=== PATIENT | female | born 1985 | race American Indian/Alaskan Native ===

== ENCOUNTER 2019-04-09 02:45 | Emergency (ER) | payer SELFPAY ==
[2019-04-09 02:54] VITALS: BP 129/82
[2019-04-09 03:59] LABS: HCG Qualitative,Urine Negative (Negative)
[2019-04-09] MEDS ORDERED: KETOROLAC 30 MG/1 ML INJ IM ONE (04:04)
[2019-04-09] MEDS ORDERED: dexAMETHasone 20 MG/5 ML VIAL IM ONE (04:05)
[2019-04-09 04:09] LABS: Bilirubin,Urine NEG (Negative); Blood,Urine LG (Negative); Color,Urine Yellow (Yellow); Mucus,Urine 1+ /HPF
[2019-04-09 04:36] LABS: Hematocrit 38.1 % (30.3-42.9); Hemoglobin 12.9 gm/dl (10.1-14.3); Mean Corpuscular HGB Conc 34 % (30-34); Mean Corpuscular Volume 86 fl (79-97); Platelet Count 202 K/mm3 (140-440); Red Blood Count 4.42 M/mm3 (3.65-5.03)
--- NOTE | 2019-04-09 04:41 | Cat Scan Report ---
CT OF THE ABDOMEN AND PELVIS WITHOUT CONTRAST INDICATION / CLINICAL INFORMATION: Left lower abdominal and flank pain.. TECHNIQUE: All CT scans at this location are performed using CT dose reduction for ALARA by means of automated e xposure control. COMPARISON: None available. FINDINGS: ABDOMEN: The liver, spleen, gallbladder, bile ducts, pancreas, adrenal glands, kidneys and bowel demo nstrate no significant abnormality. No adenopathy is seen. The lung bases are clear. PELVIS: The distal ureters and urinary bladder are normal. The uterus and adnexal regions are normal. Minimal free fluid in the cul-de-sac is likely physiologic. A normal appendix is present and there i s no evidence of diverticulitis. I do not identify a hernia. No acute osseous abnormality is seen. IMPRESSION: No acute abnormality. Signer Name: Moisés Workman MD Signed: 04/09/2019 4:37 AM Workstation Name: [id number]
[2019-04-09 04:56] LABS: Alanine Aminotransferase 13 units/L (7-56); Albumin 4.3 g/dL (3.9-5); BUN/Creatinine Ratio 10; Blood Urea Nitrogen 8 mg/dL (7-17); Calcium 8.9 mg/dL (8.4-10.2); Hemolysis Index 3
--- NOTE | 2019-04-09 05:05 | Emergency Department Report ---
ED General Adult HPI - General Chief complaint: Abdominal Pain Stated complaint: CHEST PAIN/ABD PAIN Source: patient Mode of arrival: Ambulatory Limitations: No Limitations - History of Present Illness Initial comments: Patient is a 33-year-old Afro-[place]ian female with no past medical history who presents to the ED, acute onset persistent nasal and sinus congestion, frontal sinus pressure and dry cough as well as severe left hip pain that radiates to the left lower quadrant for the last 2 days, worse in the last 2 hours. Patient denies fever, chills, nausea, vomiting, dizziness, chest pain, shortness of breath, diarrhea, dysuria, urinary frequency and urgency, heavy lifting or fall, diarrhea or numbness and tingling over her lower extremities bilaterally. MD Complaint: left hip pain; nasal and sinus congestion -: Sudden, hour(s) (2) Location: abdomen (LLQ) Radiation: abdomen (LLQ), flank (left) Severity scale (0 -10): 7 Quality: aching, sharp Consistency: constant Improves with: none Worsens with: movement Associated Symptoms: denies other symptoms, cough, loss of appetite. denies: confusion, chest pain, diaphoresis, fever/chills, headaches, malaise, nausea/vomiting, rash, seizure, shortness of breath, syncope, weakness Treatments Prior to Arrival: none - Related Data Previous Rx's Medication Instructions Recorded Last Taken Type Azithromycin [Zithromax Z-SHADE] 250 mg PO DAILY #6 tablet 04/09/19 Unknown Rx Benzonatate [Tessalon Perles] 100 mg PO Q8HR #30 capsule 04/09/19 Unknown Rx Cetirizine HCl [Zyrtec 10mg tab] 10 mg PO DAILY #30 tablet 04/09/19 Unknown Rx Ibuprofen [Motrin] 800 mg PO Q8HR PRN #24 tablet 04/09/19 Unknown Rx Prednisone [predniSONE 10 mg 10 mg PO .TAPER #21 tab.ds.pk 04/09/19 Unknown Rx (6-Day Pack, 21 Tabs)] Allergies Allergy/AdvReac Type Severity Reaction Status Date / Time No Known Allergies Allergy Unverified 04/09/19 03:02 ED Review of Systems ROS: Stated complaint: CHEST PAIN/ABD PAIN Other details as noted in HPI Constitutional: denies: chills, fever Eyes: denies: eye pain, eye discharge, vision change ENT: throat pain, congestion. denies: ear pain Respiratory: cough. denies: shortness of breath, wheezing Cardiovascular: denies: chest pain, palpitations Endocrine: no symptoms reported Gastrointestinal: denies: abdominal pain, nausea, diarrhea Genitourinary: denies: urgency, dysuria, discharge Musculoskeletal: arthralgia (left hip pain). denies: back pain, joint swelling Skin: denies: rash, lesions Neurological: denies: headache, weakness, paresthesias Psychiatric: denies: anxiety, depression Hematological/Lymphatic: denies: easy bleeding, easy bruising ED Past Medical Hx - Past Medical History Previous Medical History?: Yes Hx Seizures: Yes - Surgical History Past Surgical History?: Yes Additional Surgical History: c-sec - Social History Smoking Status: Current Every Day Smoker Substance Use Type: None - Medications Home Medications: Home Medications Medication Instructions Recorded Confirmed Last Taken Type Azithromycin [Zithromax Z-SHADE] 250 mg PO DAILY #6 tablet 04/09/19 Unknown Rx Benzonatate [Tessalon Perles] 100 mg PO Q8HR #30 capsule 04/09/19 Unknown Rx Cetirizine HCl [Zyrtec 10mg tab] 10 mg PO DAILY #30 tablet 04/09/19 Unknown Rx Ibuprofen [Motrin] 800 mg PO Q8HR PRN #24 tablet 04/09/19 Unknown Rx Prednisone [predniSONE 10 mg 10 mg PO .TAPER #21 tab.ds.pk 04/09/19 Unknown Rx (6-Day Pack, 21 Tabs)] ED Physical Exam - General Limitations: No Limitations General appearance: alert, in no apparent distress - Head Head exam: Present: atraumatic, normocephalic, normal inspection - Eye Eye exam: Present: normal appearance, PERRL, EOMI - ENT ENT exam: Present: mucous membranes moist, TM's normal bilaterally, normal external ear exam, other (grossly congested nasal passages) - Neck Neck exam: Present: normal inspection, full ROM. Absent: tenderness, lymphadenopathy - Respiratory Respiratory exam: Present: normal lung sounds bilaterally. Absent: respiratory distress, wheezes, rales, chest wall tenderness, accessory muscle use, prolonged expiratory - Cardiovascular Cardiovascular Exam: Present: regular rate, normal rhythm, normal heart sounds. Absent: systolic murmur, diastolic murmur, rubs, gallop - GI/Abdominal GI/Abdominal exam: Present: soft, normal bowel sounds. Absent: tenderness, guarding, rebound, hyperactive bowel sounds, hypoactive bowel sounds, organomegaly - Extremities Exam Extremities exam: Present: normal inspection, full ROM, tenderness (palpable left hip tenderness), normal capillary refill - Back Exam Back exam: Present: normal inspection, full ROM. Absent: tenderness, muscle spasm, paraspinal tenderness - Neurological Exam Neurological exam: Present: alert, oriented X3, CN II-XII intact, normal gait, reflexes normal - Psychiatric Psychiatric exam: Present: normal affect, normal mood - Skin Skin exam: Present: warm, dry, intact, normal color. Absent: rash ED Course Vital Signs 04/09/19 02:52 Temperature 98.7 F Pulse Rate 94 H Respiratory 20 Rate Blood Pressure 129/82 O2 Sat by Pulse 100 Oximetry ED Medical Decision Making - Lab Data Result diagrams: 04/09/19 04:19 04/09/19 04:19 - Radiology Data Radiology results: report reviewed, [place] [address] Cat Scan Report Signed Patient: LINDA ARMSTRONG MR#: [id number] : 1985 Acct:[id number] Age/Sex: 33 / F ADM Date: 04/09/19 Loc: ED Attending Dr: Ordering Physician: BIN BRAND Date of Service: 04/09/19 Procedure(s): CT abdomen pelvis wo con Accession Number(s): [id number] cc: BIN BRAND CT OF THE ABDOMEN AND PELVIS WITHOUT CONTRAST INDICATION / CLINICAL INFORMATION: Left lower abdominal and flank pain.. TECHNIQUE: All CT scans at this location are performed using [facility] by means of automated exposure control. COMPARISON: None available. FINDINGS: ABDOMEN: The liver, spleen, gallbladder, bile ducts, pancreas, adrenal glands, kidneys and bowel demonstrate no significant abnormality. No adenopathy is seen. The lung bases are clear. PELVIS: The distal ureters and urinary bladder are normal. The uterus and adnexal regions are normal. Minimal free fluid in the cul-de-sac is likely physiologic. A normal appendix is present and there is no evidence of diverticulitis. I do not identify a hernia. No acute osseous abnormality is seen. IMPRESSION: No acute abnormality. Signer Name: Moisés Workman MD Signed: 04/09/2019 4:37 AM Workstation Name: [id number] Transcribed By: RT Dictated By: Moisés Workman MD Electronically Authenticated By: Moisés Workman MD Signed Date/Time: 04/09/19436 DD/ 3 TD/TT: - Medical Decision Making This is a 33-year-old female with no past medical history presented to the ED with complaint of acute onset persistent nasal and sinus congestion, persistent dry cough for 2 days, and acute onset severe left hip pain that radiated to the left lower quadrant area for 2 hours. In the ED, patient is alert and oriented 3 and is not in distress. Lab test results were reviewed and all nonactio nable. Abdomen pelvis CT scan without contrast shows no acute abnormalities in the abdomen and pelvis. Patient was offered pain medications but declined. Patient was therefore discharged home on medications for pain and medications for upper respiratory infection and was advised to follow-up with her primary care physician in 5-7 days for reevaluation or return to the ED immediately if symptoms get worse. - Differential Diagnosis kidney stones; muscle strain; colitis; UTI; Ovarian cyst Critical care attestation.: If time is entered above; I have spent that time in minutes in the direct care of this critically ill patient, excluding procedure time. ED Disposition Clinical Impression: Acute pain of left hip, Acute upper respiratory infection Muscle strain of left hip Qualifiers: Encounter type: initial encounter Qualified Code(s): S76.012A - Strain of muscle, fascia and tendon of left hip, initial encounter Disposition: TO HOME OR SELFCARE Is pt being admited?: No Does the pt Need Aspirin: No Condition: Stable Instructions: Abdominal Pain (ED), Arthralgia (ED), Muscle Strain (ED), Upper Respiratory Infection (ED) Additional Instructions: Your symptoms are likely due to muscle strain of the left hip. The lab test results and imaging report unremarkable. Take medications with food, drink plenty of fluids and follow-up with your primary care physician in 7-10 days for reevaluation. Return to the ED immediately if symptoms get worse. Prescriptions: Ibuprofen [Motrin] 800 mg PO Q8HR PRN #24 tablet PRN Reason: Pain , Severe (7-10) Prednisone [predniSONE 10 mg (6-Day Pack, 21 Tabs)] 10 mg PO .TAPER #21 tab.ds.pk Benzonatate [Tessalon Perles] 100 mg PO Q8HR #30 capsule Azithromycin [Zithromax Z-SHADE] 250 mg PO DAILY #6 tablet Cetirizine HCl [Zyrtec 10mg tab] 10 mg PO DAILY #30 tablet Referrals: [facility] [Outside] - 7-10 days Time of Disposition: 06:19 Print Language: KINYARWANDA
[2019-04-09 05:54] LABS: Eosinophils % (Manual) 0 % (0.0-4.3); Total Cells Counted 100
[2019-04-09 05:55] LABS: Anisocytosis Few; Platelet Estimate Consistent w Auto
== END 2019-04-09 06:42 | disposition home or self-care (01) ==
LOC: ED 02:45
DX: S76.012A Strain of muscle, fascia and tendon of left hip, initial encounter (principal); J06.9 Acute upper respiratory infection, unspecified; F17.200 Nicotine dependence, unspecified, uncomplicated; Z79.899 Other long term (current) drug therapy; X58.XXXA Exposure to other specified factors, initial encounter; Y93.89 Activity, other specified; Y92.89 Other specified places as the place of occurrence of the external cause; Y99.8 Other external cause status
CPT/HCPCS: 36415; 74176; 80053; 81001; 81025; 83690; 85007; 85025; 99284; J1100; J1885

== ENCOUNTER 2019-06-24 21:08 | Emergency (ER) | payer OTHER ==
[2019-06-24 21:31] VITALS: BP 124/67
--- NOTE | 2019-06-24 23:57 | Emergency Department Report ---
ED Head Trauma HPI - General Chief complaint: Abdominal Pain Stated complaint: STOMACH PAIN/PINK DISCHARGE Time Seen by Provider: 06/24/19 23:54 Source: patient Mode of arrival: Ambulatory Limitations: No Limitations - Related Data Previous Rx's Medication Instructions Recorded Last Taken Type Azithromycin [Zithromax Z-SHADE] 250 mg PO DAILY #6 tablet 04/09/19 Unknown Rx Benzonatate [Tessalon Perles] 100 mg PO Q8HR #30 capsule 04/09/19 Unknown Rx Cetirizine HCl [Zyrtec 10mg tab] 10 mg PO DAILY #30 tablet 04/09/19 Unknown Rx Ibuprofen [Motrin] 800 mg PO Q8HR PRN #24 tablet 04/09/19 Unknown Rx Prednisone [predniSONE 10 mg 10 mg PO .TAPER #21 tab.ds.pk 04/09/19 Unknown Rx (6-Day Pack, 21 Tabs)] Allergies/Adverse reactions: Allergies Allergy/AdvReac Type Severity Reaction Status Date / Time No Known Allergies Allergy Unverified 04/09/19 03:02 ED Review of Systems ROS: Stated complaint: STOMACH PAIN/PINK DISCHARGE Other details as noted in HPI ED Past Medical Hx - Past Medical History Previous Medical History?: No Hx Seizures: Yes - Surgical History Past Surgical History?: Yes Additional Surgical History: c-sec, - Social History Smoking Status: Current Every Day Smoker Substance Use Type: None - Medications Home Medications: Home Medications Medication Instructions Recorded Confirmed Last Taken Type Azithromycin [Zithromax Z-SHADE] 250 mg PO DAILY #6 tablet 04/09/19 Unknown Rx Benzonatate [Tessalon Perles] 100 mg PO Q8HR #30 capsule 04/09/19 Unknown Rx Cetirizine HCl [Zyrtec 10mg tab] 10 mg PO DAILY #30 tablet 04/09/19 Unknown Rx Ibuprofen [Motrin] 800 mg PO Q8HR PRN #24 tablet 04/09/19 Unknown Rx Prednisone [predniSONE 10 mg 10 mg PO .TAPER #21 tab.ds.pk 04/09/19 Unknown Rx (6-Day Pack, 21 Tabs)] ED Physical Exam - General Limitations: No Limitations ED Course Vital Signs 06/24/19 21:30 Temperature 98.4 F Pulse Rate 91 H Respiratory 18 Rate Blood Pressure 124/67 O2 Sat by Pulse 99 Oximetry Critical care attestation.: If time is entered above; I have spent that time in minutes in the direct care of this critically ill patient, excluding procedure time. ED Disposition Condition: Stable Instructions: Abdominal Pain (ED) Referrals: PRIMARY CARE, [Primary Care Provider] - 3-5 Days
--- NOTE | 2019-06-25 00:01 | Emergency Department Report ---
ED Abdominal Pain HPI - General Chief Complaint: Abdominal Pain Stated Complaint: STOMACH PAIN/PINK DISCHARGE Time Seen by Provider: 06/24/19 23:54 Source: patient Mode of arrival: Ambulatory Limitations: No Limitations - Related Data Previous Rx's Medication Instructions Recorded Last Taken Type Azithromycin [Zithromax Z-SHADE] 250 mg PO DAILY #6 tablet 04/09/19 Unknown Rx Benzonatate [Tessalon Perles] 100 mg PO Q8HR #30 capsule 04/09/19 Unknown Rx Cetirizine HCl [Zyrtec 10mg tab] 10 mg PO DAILY #30 tablet 04/09/19 Unknown Rx Ibuprofen [Motrin] 800 mg PO Q8HR PRN #24 tablet 04/09/19 Unknown Rx Prednisone [predniSONE 10 mg 10 mg PO .TAPER #21 tab.ds.pk 04/09/19 Unknown Rx (6-Day Pack, 21 Tabs)] metroNIDAZOLE [Flagyl] 500 mg PO Q12HR 7 Days #14 tab 06/25/19 Unknown Rx Allergies Allergy/AdvReac Type Severity Reaction Status Date / Time No Known Allergies Allergy Unverified 04/09/19 03:02 ED Review of Systems ROS: Stated complaint: STOMACH PAIN/PINK DISCHARGE Other details as noted in HPI ED Past Medical Hx - Past Medical History Previous Medical History?: No Hx Seizures: Yes - Surgical History Past Surgical History?: Yes Additional Surgical History: c-sec, - Social History Smoking Status: Current Every Day Smoker Substance Use Type: None - Medications Home Medications: Home Medications Medication Instructions Recorded Confirmed Last Taken Type Azithromycin [Zithromax Z-SHADE] 250 mg PO DAILY #6 tablet 04/09/19 Unknown Rx Benzonatate [Tessalon Perles] 100 mg PO Q8HR #30 capsule 04/09/19 Unknown Rx Cetirizine HCl [Zyrtec 10mg tab] 10 mg PO DAILY #30 tablet 04/09/19 Unknown Rx Ibuprofen [Motrin] 800 mg PO Q8HR PRN #24 tablet 04/09/19 Unknown Rx Prednisone [predniSONE 10 mg 10 mg PO .TAPER #21 tab.ds.pk 04/09/19 Unknown Rx (6-Day Pack, 21 Tabs)] metroNIDAZOLE [Flagyl] 500 mg PO Q12HR 7 Days #14 tab 06/25/19 Unknown Rx ED Physical Exam - General Limitations: No Limitations ED Course Vital Signs 06/24/19 21:30 Temperature 98.4 F Pulse Rate 91 H Respiratory 18 Rate Blood Pressure 124/67 O2 Sat by Pulse 99 Oximetry - Reevaluation(s) Reevaluation #1: 06/25/19 02:24 Patient stable in no acute distress. Urinalysis negative for infection. Wet prep positive for bacterial vaginosis and trichomonas. Patient will be discharged home in [place] to treat both. Urine test positive blood patient had miscarriage 4 weeks ago. She was at hospital in [place] 2 days ago where she had ultrasound done and she said that ultrasound did not show any and it was normal. Patient refused hormone. Refer to AMA form ED Medical Decision Making - Lab Data Lab Results 06/25/19 Range/Units 00:20 Urine Color Yellow (Yellow) Urine Turbidity Clear (Clear) Urine pH 5.0 (5.0-7.0) Ur Specific [place] 1.028 (1.003-1.030) Urine Protein <15 mg/dl (Negative) mg/dL Urine Glucose (UA) Neg (Negative) mg/dL Urine Ketones Neg (Negative) mg/dL Urine Blood Neg (Negative) Urine Nitrite Neg (Negative) Urine Bilirubin Neg (Negative) Urine Urobilinogen < 2.0 (<2.0) mg/dL Ur Leukocyte Esterase Neg (Negative) Urine WBC (Auto) 1.0 (0.0-6.0) /HPF Urine RBC (Auto) 2.0 (0.0-6.0) /HPF U Epithel Cells (Auto) 2.0 (0-13.0) /HPF Urine Mucus Few /HPF Urine HCG, Qual Positive A (Negative) Wet prep positive for bacterial vaginosis and trichomonas. Negative for yeast Gonorrhea and Chlamydia pending Critical care attestation.: If time is entered above; I have spent that time in minutes in the direct care of this critically ill patient, excluding procedure time. ED Disposition Clinical Impression: Bacterial vaginosis, Trichomoniasis of vagina, Vaginal discharge Disposition: - TO HOME OR SELFCARE Is pt being admited?: No Does the pt Need Aspirin: No Condition: Stable Instructions: Bacterial Vaginosis (ED), Trichomoniasis (ED) Additional Instructions: Please follow-up with your [facility] in 3 days for miscarriage 4 days ago. Take medication as prescribed for bacterial vaginosis and trichomonas. Flagyl will cover both. Please avoid drinking alcohol while taking this medication as it can cause severe upset stomach Your urinalysis test was positive today due to recent miscarriage 4 weeks ago You had an ultrasound 2 days ago at another hospital which he said was normal so there is no need for you to have additional ultrasound If your condition worsens, return to the emergency room Practice safe sex. Avoid having sex for the next 2 weeks and follow-up with health department in 7 to 10 days for repeat STD testing Prescriptions: metroNIDAZOLE [Flagyl] 500 mg PO Q12HR 7 Days #14 tab Referrals: [facility]IMARY [facility] [Primary Care Provider] - 06/27/19 [facility] [Outside] - 7-10 days [facility] [Provider Group] - 06/27/19 Forms: STI Treatment and Prevention, AMA Form
[2019-06-25 00:58] LABS: Bilirubin,Urine NEG (Negative); Blood,Urine NEG (Negative); Color,Urine Yellow (Yellow); Mucus,Urine FEW /HPF; Protein,Urine <15 mg/dL mg/dL (Negative); Urobilinogen,Urine < 2.0 mg/dL (<2.0)
[2019-06-25 01:25] LABS: HCG Qualitative,Urine Positive (Negative)
== END 2019-06-25 02:42 | disposition home or self-care (01) ==
LOC: ED 21:08
DX: N76.0 Acute vaginitis (principal); A59.01 Trichomonal vulvovaginitis; F17.200 Nicotine dependence, unspecified, uncomplicated
CPT/HCPCS: 81001; 81025; 87210; 87591; 99283